=== PATIENT | female | born 1995 | race Caucasian/White ===

== ENCOUNTER → 2016-09-18 | Outpatient (CLI) | payer OTHER | END | disposition home or self-care (01) | LOC: ECT 07:58 | DX: F33.2 Major depressive disorder, recurrent severe without psychotic features (principal); F84.5 Asperger's syndrome; I10 Essential (primary) hypertension; Z88.0 Allergy status to penicillin; Z88.2 Allergy status to sulfonamides ==

== ENCOUNTER 2016-10-22 09:09 | Outpatient (RCR) | payer OTHER ==
[~2016-10-22] VITALS: Ht 157.5 cm; Wt 140.6 kg
[2016-10-22] MEDS ORDERED: Methohexital Sodium Syr 100mg/10ml IVP ONE (09:10)
[2016-10-22] MEDS ORDERED: SUMAtriptan 6mg/0.5ml Inj SUBQ ONE (09:10)
[2016-10-22] MEDS ORDERED: Excedrin Migraine tab ONE (09:10)
[2016-10-22] MEDS ORDERED: Ketorolac 60mg Inj ONE (09:10)
[2016-10-22] MEDS ORDERED: Succinylcholine 20mg/ml 10ml vial ONE (09:10)
[2016-10-22] MEDS ORDERED: Labetalol 5mg/ml 20ml vial IV ONE (09:10)
[2016-10-24] MEDS ORDERED: Excedrin Migraine tab ORAL PRN (12:30)
[2016-10-27] MEDS ORDERED: SUMAtriptan 6mg/0.5ml Inj SUBQ ONE (08:00)
[2016-10-27] MEDS ORDERED: Succinylcholine 20mg/ml 10ml vial ONE (08:00)
[2016-10-27] MEDS ORDERED: Labetalol 5mg/ml 20ml vial IV ONE (08:00)
[2016-10-27] MEDS ORDERED: Excedrin Migraine tab ONE (08:00)
[2016-10-27] MEDS ORDERED: NS 550ML IV ONE (08:00)
[2016-10-27] MEDS ORDERED: Ketorolac 60mg Inj ONE (08:00)
[2016-10-27] MEDS ORDERED: Excedrin Migraine tab ORAL PRN (12:30)
[2016-10-27] MEDS ORDERED: Atropine Sulfate 0.4mg/ml inj IVP PRN (12:30)
[2016-10-29] MEDS ORDERED: Methohexital Sodium Syr 100mg/10ml IVP ONE (12:30)
[2016-10-29] MEDS ORDERED: Excedrin Migraine tab ONE (12:30)
[2016-10-29] MEDS ORDERED: Succinylcholine 20mg/ml 10ml vial ONE (12:30)
[2016-10-29] MEDS ORDERED: NS 550ML IV ONE (12:30)
[2016-10-29] MEDS ORDERED: Ketorolac 30mg Inj ONE (12:30)
[2016-10-29] MEDS ORDERED: SUMAtriptan 6mg/0.5ml Inj SUBQ ONE (12:30)
[2016-10-29] MEDS ORDERED: Excedrin Migraine tab ORAL PRN (17:45)
[2016-10-29] MEDS ORDERED: Atropine Sulfate 0.4mg/ml inj IVP PRN (17:45)
[2016-10-31] MEDS ORDERED: Excedrin Migraine tab ONE (12:30)
[2016-10-31] MEDS ORDERED: Ketorolac 30mg Inj ONE (12:30)
[2016-10-31] MEDS ORDERED: Succinylcholine 20mg/ml 10ml vial ONE (12:30)
[2016-10-31] MEDS ORDERED: NS 550ML IV ONE (12:30)
[2016-10-31] MEDS ORDERED: SUMAtriptan 6mg/0.5ml Inj SUBQ ONE (12:30)
[2016-10-31] MEDS ORDERED: Methohexital Sodium Syr 100mg/10ml IVP ONE (12:30)
[2016-11-03] MEDS ORDERED: Excedrin Migraine tab ORAL PRN (08:40)
[2016-11-03] MEDS ORDERED: Methohexital Sodium Syr 100mg/10ml IVP ONE (09:10)
[2016-11-03] MEDS ORDERED: Ketorolac 60mg Inj ONE (09:10)
[2016-11-03] MEDS ORDERED: NS 550ML IV ONE (09:10)
[2016-11-03] MEDS ORDERED: SUMAtriptan 6mg/0.5ml Inj SUBQ ONE (09:10)
[2016-11-03] MEDS ORDERED: Succinylcholine 20mg/ml 10ml vial ONE (09:10)
[2016-11-03] MEDS ORDERED: Excedrin Migraine tab ONE (09:10)
[2016-11-05] MEDS ORDERED: SUMAtriptan 6mg/0.5ml Inj SUBQ ONE (09:10)
[2016-11-05] MEDS ORDERED: Methohexital Sodium 500mg Vial IVP ONE (09:10)
[2016-11-05] MEDS ORDERED: NS 550ML IV ONE (09:10)
[2016-11-05] MEDS ORDERED: Ketorolac 60mg Inj ONE (09:10)
[2016-11-05] MEDS ORDERED: Excedrin Migraine tab ONE (09:10)
[2016-11-05] MEDS ORDERED: Succinylcholine 20mg/ml 10ml vial ONE (09:10)
[2016-11-05] MEDS ORDERED: Excedrin Migraine tab ORAL PRN (16:30)
[2016-11-10] MEDS ORDERED: SUMAtriptan 6mg/0.5ml Inj SUBQ ONE (12:30)
[2016-11-10] MEDS ORDERED: Succinylcholine 20mg/ml 10ml vial ONE (12:30)
[2016-11-10] MEDS ORDERED: Methohexital Sodium Syr 100mg/10ml IVP ONE (12:30)
[2016-11-10] MEDS ORDERED: NS 550ML IV ONE (12:30)
[2016-11-10] MEDS ORDERED: Excedrin Migraine tab ORAL PRN (12:30)
[2016-11-10] MEDS ORDERED: Ketorolac 30mg Inj ONE (12:30)
[2016-11-10] MEDS ORDERED: Excedrin Migraine tab ONE (12:30)
[2016-11-11] MEDS ORDERED: SUMAtriptan 6mg/0.5ml Inj SUBQ ONE (13:35)
== END 2016-11-11 | disposition home or self-care (01) ==
LOC: ECT 09:09
DX: F33.2 Major depressive disorder, recurrent severe without psychotic features (principal)
CPT/HCPCS: 90870; J0330; J1885; J3030; J3490; J7040

== ENCOUNTER 2016-11-14 05:08 | Outpatient (RCR) | payer OTHER ==
[~2016-11-14] VITALS: Ht 157.5 cm; Wt 136.1 kg
[2016-11-14] MEDS ORDERED: NS 550ML IV ONE (05:09)
[2016-11-14] MEDS ORDERED: Succinylcholine 20mg/ml 10ml vial ONE (05:09)
[2016-11-14] MEDS ORDERED: Excedrin Migraine tab ONE (05:09)
[2016-11-14] MEDS ORDERED: Ketorolac 60mg Inj ONE (05:09)
[2016-11-14] MEDS ORDERED: SUMAtriptan 6mg/0.5ml Inj SUBQ ONE (05:09)
[2016-11-24] MEDS ORDERED: Excedrin Migraine tab ORAL PRN ×2 (08:09→15:45)
[2016-11-26] MEDS ORDERED: Excedrin Migraine tab ORAL PRN (07:54)
[2016-11-26] MEDS ORDERED: Succinylcholine 20mg/ml 10ml vial ONE (08:00)
[2016-11-26] MEDS ORDERED: Ketorolac 60mg Inj ONE (08:00)
[2016-11-26] MEDS ORDERED: SUMAtriptan 6mg/0.5ml Inj SUBQ ONE (08:00)
[2016-11-26] MEDS ORDERED: NS 550ML IV ONE (08:00)
[2016-11-26] MEDS ORDERED: Methohexital Sodium Syr 100mg/10ml IVP ONE (08:00)
[2016-11-26] MEDS ORDERED: Excedrin Migraine tab ONE (08:00)
[2016-11-28] MEDS ORDERED: Excedrin Migraine tab ORAL PRN (07:23)
[2016-11-28] MEDS ORDERED: Excedrin Migraine tab ONE (08:00)
[2016-11-28] MEDS ORDERED: Succinylcholine 20mg/ml 10ml vial ONE (08:00)
[2016-11-28] MEDS ORDERED: Ketorolac 60mg Inj ONE (08:00)
[2016-11-28] MEDS ORDERED: NS 550ML IV ONE (08:00)
[2016-11-28] MEDS ORDERED: SUMAtriptan 6mg/0.5ml Inj SUBQ ONE (08:00)
[2016-11-28] MEDS ORDERED: Methohexital Sodium Syr 100mg/10ml IVP ONE (08:00)
[2016-12-01] MEDS ORDERED: NS 550ML IV ONE (05:09)
[2016-12-01] MEDS ORDERED: Succinylcholine 20mg/ml 10ml vial ONE (05:09)
[2016-12-01] MEDS ORDERED: Excedrin Migraine tab ONE (05:09)
[2016-12-01] MEDS ORDERED: Methohexital Sodium Syr 100mg/10ml IVP ONE (05:09)
[2016-12-01] MEDS ORDERED: SUMAtriptan 6mg/0.5ml Inj SUBQ ONE (05:09)
[2016-12-01] MEDS ORDERED: Ketorolac 60mg Inj ONE (05:09)
[2016-12-01] MEDS ORDERED: Excedrin Migraine tab ORAL PRN (07:28)
[2016-12-01] MEDS ORDERED: Atropine Sulfate 0.4mg/ml inj IVP PRN (07:28)
[2016-12-03] MEDS ORDERED: SUMAtriptan 6mg/0.5ml Inj SUBQ ONE (08:00)
[2016-12-03] MEDS ORDERED: Succinylcholine 20mg/ml 10ml vial ONE (08:00)
[2016-12-03] MEDS ORDERED: Excedrin Migraine tab ONE (08:00)
[2016-12-03] MEDS ORDERED: NS 550ML IV ONE (08:00)
[2016-12-03] MEDS ORDERED: Methohexital Sodium Syr 100mg/10ml IVP ONE (08:00)
[2016-12-03] MEDS ORDERED: Ketorolac 60mg Inj ONE (08:00)
[2016-12-03] MEDS ORDERED: Excedrin Migraine tab ORAL PRN (10:31)
[2016-12-03] MEDS ORDERED: Atropine Sulfate 0.4mg/ml inj IVP PRN (10:31)
[2016-12-08] MEDS ORDERED: Excedrin Migraine tab ONE (05:09)
[2016-12-08] MEDS ORDERED: Methohexital Sodium Syr 100mg/10ml IVP ONE (05:09)
[2016-12-08] MEDS ORDERED: Succinylcholine 20mg/ml 10ml vial ONE (05:09)
[2016-12-08] MEDS ORDERED: SUMAtriptan 6mg/0.5ml Inj SUBQ ONE (05:09)
[2016-12-08] MEDS ORDERED: Ketorolac 60mg Inj ONE (05:09)
[2016-12-08] MEDS ORDERED: NS 550ML IV ONE (05:09)
== END 2016-12-12 | disposition home or self-care (01) ==
LOC: ECT 05:08
DX: F33.2 Major depressive disorder, recurrent severe without psychotic features (principal); Z88.0 Allergy status to penicillin; Z88.2 Allergy status to sulfonamides; Z88.8 Allergy status to other drugs, medicaments and biological substances
CPT/HCPCS: 90870; J0330; J3030; J7040

== ENCOUNTER 2016-12-15 08:40 | Outpatient (RCR) | payer OTHER ==
[~2016-12-15] VITALS: Ht 157.5 cm; Wt 140.6 kg
[2016-12-15] MEDS ORDERED: NS 550ML IV ONE (08:41)
[2016-12-15] MEDS ORDERED: Excedrin Migraine tab ONE (08:41)
[2016-12-15] MEDS ORDERED: SUMAtriptan 6mg/0.5ml Inj SUBQ ONE (08:41)
[2016-12-15] MEDS ORDERED: Ketorolac 60mg Inj ONE (08:41)
[2016-12-15] MEDS ORDERED: Succinylcholine 20mg/ml 10ml vial ONE (08:41)
[2016-12-15] MEDS ORDERED: Methohexital Sodium Syr 100mg/10ml IVP ONE (08:41)
[2016-12-15] MEDS ORDERED: Excedrin Migraine tab ORAL PRN (12:30)
== END 2017-01-11 | disposition home or self-care (01) ==
LOC: ECT 08:40
DX: F33.2 Major depressive disorder, recurrent severe without psychotic features (principal)
CPT/HCPCS: 90870; J0330; J3030; J7040